=== PATIENT | male | born 1985 | race Two or more races ===

== ENCOUNTER 2019-12-31 12:00 | Emergency (ER) | payer SELFPAY ==
[~2019-12-31] VITALS: Ht 170.2 cm; Wt 65.9 kg
[2019-12-31 12:26] VITALS: BP 117/80
[2019-12-31] MEDS ORDERED: ACETAMINOPHEN 500 MG TABLET PO ONE (14:15)
== END 2019-12-31 15:44 | disposition home or self-care (01) ==
LOC: EMS 12:05
DX: M25.551 Pain in right hip (principal); M25.552 Pain in left hip; G89.29 Other chronic pain; F60.9 Personality disorder, unspecified; F17.200 Nicotine dependence, unspecified, uncomplicated